=== PATIENT | male | born 1960 | race Caucasian/White ===

== ENCOUNTER 2017-09-25 17:14 | Emergency (ER) | payer OTHER ==
[2017-09-25 17:45] VITALS: TEMP 99
[2017-09-25] MEDS ORDERED: AMOXICILLIN/CLAVULANATE POT 875/125 MG TAB PO ONE (18:27)
--- NOTE | 2017-09-25 18:27 | EDPHY ---
H & P Time Seen by Provider: 09/25/17 17:40 HPI/ROS: 57-year-old male presents complaining of multiple dog bites to right arm and left hand sustained during Thanksgiving dinner when trying to break up a fight between his dog and his daughter's dog. Patient has worked as a auto machinist for many years and has had multiple injuries to his hands with multiple sutures. Review of systems As per HPI General no fever no chills no weakness HEENT no eye pain no eye discharge. No eye redness, no sore throat Respiratory no cough, no shortness of breath Cardiac no chest pain, no peripheral edema GI no abdominal pain, no diarrhea, no constipation, no nausea, no vomiting no flank pain, no hematuria, no dysuria Musculoskeletal no myalgias, no joint pain Heme no easy bruising, no easy bleeding Endo no polyuria, no polydipsia Skin no rashes, no pruritus Neuro no syncope, no dizziness, no headaches Psych is no suicidal ideation, no homicidal ideation Past Medical/Surgical History: Hypertension Social History: Drinks alcohol socially, denies drug use Smoking Status: Never smoked Physical Exam: 57-year-old male alert and oriented in no acute distress nontoxic appearance afebrile Atraumatic normocephalic Neck supple Lungs clear to auscultation bilaterally Heart regular rate and rhythm without murmur rub or gallop Abdomen nondistended bowel sounds present soft nontender Extremities Right upper extremity Forearm with 2 small puncture wounds as well as 1 area of skin avulsion No gaping lacerations Full range of motion of digits wrist elbow shoulder Good distal pulses, good capillary refill Left upper extremity Jagged laceration to left little finger, gaping, just distal to the MCP of the left little finger on both the dorsal and volar aspect from, good cap refill no foreign body, Constitutional: Initial Vital Signs Temperature (C) 37.2 C 09/25/17 17:30 Heart Rate 104 H 09/25/17 17:30 Respiratory Rate 20 09/25/17 17:30 Blood Pressure 207/131 H 09/25/17 17:30 O2 Sat (%) 93 09/25/17 17:30 O2 Delivery Mode Room Air Allergies/Adverse Reactions: No Known Allergies Allergy (Unverified 09/25/17 17:30) Home Medications: Medication Instructions Recorded Amoxicillin/Clavulanate Pot 875 mg PO BID #20 tab 09/25/17 [Augmentin 875 MG TAB (*)] Losartan Potassium 09/25/17 Medical Decision Making Procedures: Procedure note-laceration Digital block with lidocaine 1% without epi combined with bupivacaine 0.25% without epi, approximately 3 cc. The wound was scrubbed with baby shampoo and then irrigated with copious amounts of saline. 10 simple interrupted sutures were placed. 4-0 Ethilon was used. Patient tolerated procedure well. ED Course/Re-evaluation: Patient seen and evaluated for multiple dog bite wounds Right upper extremity consisting of muscle a puncture wound and simple avulsion , non gaping No repair of the right upper extremity wounds planned Right upper extremity wounds thoroughly cleansed and bandaged left hand left little finger with 2 x jagged lacerations near mcp crease imp/plan dog bites gaping lac to left hand will repair after massive irrigation, start abx pt given extensive education on signs of infection and advised to return for wound check in 48-72 hours and for suture removal in 10-12 days placed in temporary splint started Augmentin Differential Diagnosis: dog bites, lacerations, contusions - Data Points Medications Given: Discontinued Medications Amoxicillin/Clavulanate Potassium (Augmentin 875mg) 875 mg PO EDNOW ONE PRN Reason: Protocol Stop: 09/25/17 18:28 Last Admin: 09/25/17 18:33 Dose: 875 mg Departure - Departure Disposition: Home, Routine, Self-Care Clinical Impression: Dog bite of right upper extremity, Dog bite of finger, Dog bite of multiple sites of left hand and fingers Condition: Good Instructions: Animal Bite (ED) Additional Instructions: Return in 2-3 days for a wound check Return in 10-12 days for suture removal Referrals: Jeremi Ingram MD [Primary Care Provider] - As per Instructions Prescriptions: Amoxicillin/Clavulanate Pot [Augmentin 875 MG TAB (*)] 875 mg PO BID #20 tab
[2017-09-25 19:28] VITALS: BP 184/105; PULSE 95; RESP 18; O2SAT 94
== END 2017-09-25 19:45 | disposition home or self-care (01) ==
LOC: CED 17:14
PROC: 0HQGXZZ Repair Left Hand Skin, External Approach (ICD-10-PCS; principal; 2017-09-25)
DX: S61.452A Open bite of left hand, initial encounter (principal); S41.151A Open bite of right upper arm, initial encounter; S61.257A Open bite of left little finger without damage to nail, initial encounter; I10 Essential (primary) hypertension; W54.0XXA Bitten by dog, initial encounter